=== PATIENT | male | born 1965 | race Caucasian/White ===

== ENCOUNTER → 2016-04-10 | Outpatient (CLI) | payer OTHER ==
--- NOTE | 2016-04-10 12:43 | DX ---
Lumbar spine, 2 views. HISTORY: Postop follow-up. COMPARISON STUDY: February 29, 2016. FINDINGS: Features of instrumentation and fusion are again noted from L3 through S1 with bilateral pe dicle screws at all 4 levels and intervertebral metallic fixation anteriorly,, unchanged. Alignment t hrough the operative bed is stable. Disk space narrowing at L2-L3 and L1-L2 is compatible with degene rative disk disease. IMPRESSION: 1. Stable lumbar spine radiographs post instrumentation and fusion from L3 through S1.
== END ==
LOC: FIMAGING 12:24
PROVIDERS: ATTEND Physician Assistant Surgical
DX: Z09 Encounter for follow-up examination after completed treatment for conditions other than malignant neoplasm (principal); Z98.1 Arthrodesis status

== ENCOUNTER → 2016-05-10 | Outpatient (CLI) | payer OTHER | LOC: FIMAGING 13:02 | PROVIDERS: ATTEND Physician Assistant | DX: Z09 Encounter for follow-up examination after completed treatment for conditions other than malignant neoplasm (principal); Z98.1 Arthrodesis status; M51.36 Other intervertebral disc degeneration, lumbar region; M43.16 Spondylolisthesis, lumbar region ==

== ENCOUNTER → 2016-05-21 | Outpatient (CLI) | payer OTHER | LOC: FIMAGING 07:50 | PROVIDERS: ATTEND Physician Assistant | DX: G95.9 Disease of spinal cord, unspecified (principal); M54.9 Dorsalgia, unspecified; M54.10 Radiculopathy, site unspecified; Z98.1 Arthrodesis status ==

== ENCOUNTER → 2016-09-03 | Outpatient (CLI) | payer OTHER | LOC: FIMAGING 10:45 | PROVIDERS: ATTEND Neurological Surgery | DX: Z98.1 Arthrodesis status (principal); M51.36 Other intervertebral disc degeneration, lumbar region; M43.12 Spondylolisthesis, cervical region ==

== ENCOUNTER → 2017-02-27 | Outpatient (CLI) | payer OTHER | LOC: FIMAGING 10:29 | PROVIDERS: ATTEND Physician Assistant | DX: Z98.1 Arthrodesis status (principal) ==